=== PATIENT | male | born 1955 | race Caucasian/White ===

== ENCOUNTER → 2016-12-06 | Outpatient (CLI) | payer BC ==
[~2016-12-06] MED LIST: CMD5 PO
[2016-12-06 10:35] LABS: BASO % 1.5 %; BASO ABS # 0.09 K/uL (0-0.2); COMPLETE YES; EOS % 2.1 %; HEMATOCRIT 45.7 % (42-52); IG% 0.2 %; LYMPH % 26.3 %; LYMPH ABS # 1.61 K/uL (1.2-3.4); MEAN CELL VOLUME 90.3 fL (80-100); MEAN CORPUSCULAR HGB CONC 35.4 g/dl (32-36); MEAN PLATELET VOLUME 9.7 fL (7.4-10.4); NEUT % 61.9 %; PLATELET COUNT 169 K/uL (130-400); RED BLOOD COUNT 5.06 M/uL (4.7-6.1); WHITE BLOOD COUNT 6.12 K/uL (4.8-10.8)
[2016-12-06 10:50] LABS: ESTIMATED AVERAGE GLUCOSE 100 mg/dl; HA1C FLAG Normal (Normal)
[2016-12-06 11:13] LABS: BLOOD UREA NITROGEN 12 mg/dl (7-18); BUN/CREATININE RATIO 9.9 (10-20); CARBON DIOXIDE 26 mmol/L (21-32); CHLORIDE 107 mmol/L (98-107); CHOLESTEROL 198 mg/dl (0-200); GLUCOSE 97 mg/dl (70-99); POTASSIUM 4.3 mmol/L (3.5-5.1); SODIUM 140 mmol/L (136-145); URIC ACID 7.6 mg/dl (2.6-7.2)
[2016-12-06 11:17] LABS: CHOLESTEROL/HDL RATIO 5.2; HDL CHOLESTEROL 38 mg/dl; LDL CHOLESTEROL CALCULATED 127 mg/dl; TRIGLYCERIDES 166 mg/dl (0-150); VERY LOW DENSITY LIPOPROT CALC 33 mg/dl
== END | disposition home or self-care (01) ==
LOC: C.LAB 09:55
PROVIDERS: ATTEND Physician Assistant
DX: E78.1 Pure hyperglyceridemia (principal); I82.4Y2 Acute embolism and thrombosis of unspecified deep veins of left proximal lower extremity; I26.99 Other pulmonary embolism without acute cor pulmonale; M10.9 Gout, unspecified

== ENCOUNTER → 2017-07-16 | Outpatient (CLI) | payer BC ==
[2017-07-16 13:19] LABS: BASO ABS # 0.08 K/uL (0-0.2); EOS % 0.6 %; EOS ABS # 0.05 K/uL (0-0.5); HEMATOCRIT 46.2 % (42-52); HEMOGLOBIN 16.4 g/dL (14.0-18.0); IG# 0.03 K/uL (0.00-0.02); LYMPH % 11.8 %; LYMPH ABS # 0.99 K/uL (1.2-3.4); MEAN CELL VOLUME 89.9 fL (80-100); MEAN CORPUSCULAR HEMOGLOBIN 31.9 pg (25-34); MEAN CORPUSCULAR HGB CONC 35.5 g/dl (32-36); MEAN PLATELET VOLUME 9.9 fL (7.4-10.4); MONO % 6.3 %; MONO ABS # 0.53 K/uL (0.11-0.59); NEUT % 79.9 %; NEUT ABS # 6.69 K/uL (1.4-6.5); PLATELET COUNT 192 K/uL (130-400); RED CELL DISTRIBUTION WIDTH CV 13.6 % (11.5-14.5); WHITE BLOOD COUNT 8.37 K/uL (4.8-10.8)
[2017-07-16 15:00] LABS: BLOOD UREA NITROGEN 12 mg/dl (7-18); CARBON DIOXIDE 25 mmol/L (21-32); CREATININE 1.22 mg/dl (0.60-1.40); GLUCOSE 107 mg/dl (70-99); POTASSIUM 4.1 mmol/L (3.5-5.1); SODIUM 136 mmol/L (136-145)
[2017-07-16 15:04] LABS: CHOLESTEROL 208 mg/dl (0-200); LDL CHOLESTEROL CALCULATED 130 mg/dl
== END | disposition home or self-care (01) ==
LOC: C.LAB1850 11:17
PROVIDERS: ATTEND Physician Assistant
DX: I26.99 Other pulmonary embolism without acute cor pulmonale (principal); R03.0 Elevated blood-pressure reading, without diagnosis of hypertension